=== PATIENT | female | born 1995 | race American Indian/Alaskan Native ===

== ENCOUNTER 2019-06-29 07:30 | Outpatient (CLI) | payer OTHER, MEDICARE, MEDICAID ==
--- NOTE | 2019-06-29 08:31 | Ultrasound Report ---
ULTRASOUND RENAL BILATERAL ULTRASOUND BLADDER RESIDUAL INDICATION / CLINICAL INFORMATION: OVERACTIVE BLADDER. COMPARISON: 03/07/2018 FINDINGS: RIGHT KIDNEY: Length = 9.7 cm. [normal > 9 cm] - Parenchymal Thickness = 1.2 cm. [normal > 1.5 cm] - Echogenicity: Normal. - Hydronephrosis: None. - Cyst or mass: No significant abnormality. - Stones: None seen. LEFT KIDNEY: Length = 10.2 cm. [normal > 9 cm] - Parenchymal Thickness = 1.5 cm. [normal > 1.5 cm] - Echogenicity: Normal. - Hydronephrosis: None. - Cyst or mass: No significant abnormality. - Stones: None seen. URINARY BLADDER: Prevoid bladder volume measures 375 cc. Post void residual measures 27 cc. No gross bladder abnormality. FREE FLUID: None. ADDITIONAL FINDINGS: None. IMPRESSION: Unremarkable renal ultrasound. Please note that visualization of the right kidney is limited. The bladder is unremarkable. Small post void residual measuring 27 cc. Signer Name: Mele Florentino Jr, MD Signed: 06/29/2019 8:27 AM Workstation Name: [id number]
== END 2019-06-29 07:31 | disposition home or self-care (01) ==
LOC: US 07:30
PROVIDERS: ATTEND Family Medicine
DX: N32.81 Overactive bladder (principal)
CPT/HCPCS: 76770; 76857